=== PATIENT | male | born 1995 | race Two or more races ===

== ENCOUNTER 2022-09-24 20:19 | Emergency (ER) | payer OTHER ==
[~2022-09-24] VITALS: Ht 180.3 cm; Wt 86.2 kg
[2022-09-24] MEDS ORDERED: ADDERALL 10 MG10 MG PO (20:33)
[2022-09-24] MEDS ORDERED: DESCOVY 200-251 EACH PO (20:34)
== END 2022-09-24 22:05 | disposition home or self-care (01) ==
LOC: ER 20:19
DX: S61.210A Laceration without foreign body of right index finger without damage to nail, initial encounter (principal); W29.1XXA Contact with electric knife, initial encounter; Y93.89 Activity, other specified; Y92.89 Other specified places as the place of occurrence of the external cause; Y99.9 Unspecified external cause status